=== PATIENT | male | born 1980 | race Caucasian/White ===

== ENCOUNTER 2017-12-25 06:56 | Emergency (ER) | payer OTHER ==
[~2017-12-25] VITALS: Ht 182.9 cm; Wt 79.4 kg
[2017-12-25 07:08] VITALS: Ht 182.9 cm; Wt 79.4 kg
[2017-12-25 08:35] VITALS: BP 121/79
== END 2017-12-25 08:35 | disposition home or self-care (01) ==
LOC: ED 06:56
DX: H10.9 Unspecified conjunctivitis (principal); F17.210 Nicotine dependence, cigarettes, uncomplicated; Z59.0 Homelessness